=== PATIENT | female | born 2000 | race Two or more races ===

== ENCOUNTER → 2019-04-09 | Outpatient (CLI) | payer MEDICAID, OTHER ==
--- NOTE | 2019-04-09 16:03 | RAD ---
EXAM: Obstetrics sonogram. HISTORY: Size and dates discrepancy. TECHNIQUE: Sonographic imaging of a gravid uterus was performed. COMPARISON: None. FINDINGS: There is a single intrauterine fetus in cephalic presentation with a normal heart rate of 163 bpm. The amniotic fluid index is normal at 19.2 cm. There is a posterior placenta without evidence of placenta previa. The cervix is obscured due to head positioning. The biparietal diameter is 8.40 cm, corresponding with 33 weeks and 6 days. The head circumference is 30.23 cm, corresponding with 33 weeks and 4 days. The abdominal sequential images 29.38 cm, corresponding with 33 weeks and 3 days. The femoral length is 6.44 cm, corresponding with 33 weeks and 2 days. The estimated gestational age patient combined also mentions is 33 weeks and 4 days. The estimated due date is 05/24/2019. The estimated weight is 2185 g. This corresponds with the 45th percentile for a gestational age of 33 weeks and 2 days based on LMP. IMPRESSION: Single intrauterine fetus in cephalic presentation with normal heart rate and gestational age based on ultrasound measurements of 33 weeks and 4 days. Electronically signed by: Catherine Duke MD (04/09/2019 4:00 PM) [facility] [place]
== END | disposition home or self-care (01) ==
LOC: US 13:29
PROVIDERS: ATTEND Obstetrics & Gynecology
DX: O26.893 Other specified pregnancy related conditions, third trimester (principal); Z3A.33 33 weeks gestation of pregnancy
CPT/HCPCS: 76805